=== PATIENT | male | born 1965 | race Caucasian/White ===

== ENCOUNTER 2016-09-19 09:00 | Emergency (ER) | payer OTHER ==
[~2016-09-19] VITALS: Ht 182.9 cm; Wt 128.4 kg
[2016-09-19] MEDS ORDERED: LEVO300T4 PO (09:26)
[2016-09-19] MEDS ORDERED: DEXAMETHASONE 4 MG/ML, 5ML ONE (09:41)
[2016-09-19] MEDS ORDERED: SODIUM CHLORIDE 0.9% 1,000ML IVBOLUS ONE (10:00)
[2016-09-19] MEDS ORDERED: DEXAMETHASONE 4 MG/ML, 1ML IVPush ONE (10:00)
[2016-09-19] MEDS ORDERED: SODIUM CHLORIDE FLUSH 10ML SYR IVF ONE (10:00)
[2016-09-19 10:33] LABS: BLOOD UREA NITROGEN 6 mg/dL (7-18)
[2016-09-19] MEDS ORDERED: OMNIPAQUE 350 MG/ML, 100ML BOTTLE ONE (11:24)
[2016-09-19] MEDS ORDERED: CEFTRIAXONE PMX 2GM/50ML 50 ML ONE (12:14)
[2016-09-19] MEDS ORDERED: CEFTRIAXONE PMX 2GM/50ML 50 ML IV SCH (12:30)
[2016-09-19 12:37] VITALS: BP 134/86
== END 2016-09-19 12:40 | disposition home or self-care (01) ==
LOC: ED 10:25
DX: J02.9 Acute pharyngitis, unspecified (principal); E03.9 Hypothyroidism, unspecified
CPT/HCPCS: 36415; 70491; 80048; 82040; 85025; 96361; 96365; 96375; 99285; J0696; J1100; J7030; Q9967